=== PATIENT | male | born 1975 | race Caucasian/White ===

== ENCOUNTER 2016-08-13 00:27 | Emergency (ER) | payer OTHER ==
[~2016-08-13] VITALS: Ht 172.7 cm; Wt 159.7 kg
[2016-08-13 00:35] VITALS: BP 152/104
[2016-08-13] MEDS ORDERED: IBUPROFEN 800 MG TAB PO ONE ×2 (01:39→01:45)
== END 2016-08-13 02:18 | disposition home or self-care (01) ==
LOC: ER 00:30
DX: S90.32XA Contusion of left foot, initial encounter (principal); E66.9 Obesity, unspecified; Z68.43 Body mass index [BMI] 50.0-59.9, adult; W22.8XXA Striking against or struck by other objects, initial encounter; Y93.89 Activity, other specified; Y99.8 Other external cause status; Y92.89 Other specified places as the place of occurrence of the external cause
CPT/HCPCS: 73630; 99284; L3260